=== PATIENT | female | born 1975 | race Caucasian/White ===

== ENCOUNTER 2016-06-10 09:06 | Emergency (ER) | payer BC ==
[2016-06-10 09:25] VITALS: BP 116/77
[2016-06-10 09:44] LABS: Urine Bilirubin Negative (NEGATIVE); Urine Blood 250 /ul (NEGATIVE); Urine Ketone Negative (NEGATIVE); Urine Nitrite Negative (NEGATIVE); Urine Protein 15 mg/dL (NEGATIVE); Urine Specific Gravity <=1.005 SP.GR. (1.005-1.010); Urine Urobilinogen Normal (NORMAL)
[2016-06-10 09:50] LABS: Urine Appearance Slightly Cloudy; Urine Bacteria 1+; Urine Color Yellow
--- NOTE | 2016-06-10 10:24 | ERNOTE ---
ER Female HPI Date of Service: 06/10/16 Stated Complaint: BLADDER INFECTION Time Seen by Provider: 06/10/16 09:53 Source: patient, police Immunizations: IMMUNIZATION HX Immunizations Up to Date Yes History of Influenza Vaccine No Hx Pneumococcal Vaccination No Allergies/Adverse Reactions: Allergies latex Allergy (Verified 06/10/16 09:26) Hives Penicillins Allergy (Verified 06/10/16 09:26) Sulfa (Sulfonamide Antibiotics) Allergy (Verified 06/10/16 09:26) Hives sulfamethoxazole [From Bactrim] Allergy (Verified 06/10/16 09:26) Hives trimethoprim [From Bactrim] Allergy (Verified 06/10/16 09:26) Hives Home Medications: HOME MEDICATIONS Ciprofloxacin HCl [Cipro] 500 mg PO BID #20 tab 06/10/16 [Last Taken Unknown] Effexor Er 150 mg PO DAILY 06/10/16 [Last Taken Unknown] L.acidoph,Paracasei, B.lactis [Probiotic] 1 cap PO DAILY 06/10/16 [Last Taken Unknown] Nitrofurantoin 100 mg PO DAILY PRN 06/10/16 [Last Taken Unknown] Phenazopyridine HCl [Pyridium] 100 mg PO TID #6 tab 06/10/16 [Last Taken Unknown ] Potassium 99 mg PO DAILY 06/10/16 [Last Taken Unknown] SUMAtriptan SUCCINATE [Imitrex] 25 mg PO PRN PRN 06/10/16 [Last Taken Unknown] traZODone HCL [Trazodone HCl] 100 mg PO HS 06/10/16 [Last Taken Unknown] - History of Present Illness Narrative: Pt. comes in with c/o dysuria, frequency, and urgency for a week. Pt. started her PRN macrobid four days ago but denies any relief. Pt. has frequent UTIs due to urine retention. Pt. enies any SOB, CP, NVD, back pain, but does sate that she has mild suprapubic pain. Pt. denies any aggravating factors. Review of Systems - Review of Systems Constitutional: Present: no symptoms reported EYE: Present: no symptoms reported ENT: Present: no symptoms reported Respiratory: Present: no symptoms reported Cardiology: Present: no symptoms reported Gastrointestinal/Abdominal: Present: no symptoms reported. Absent: nausea, vomiting, diarrhea, abdominal pain Genitourinary: Present: frequency, pain - suprapubic, dysuria, hematuria Musculoskeletal: Present: no symptoms reported. Absent: back pain, joint pain Neurological: Present: no symptoms reported. Absent: headache, dizziness/light- headedness, numbness, tingling Endocrine: Present: no symptoms reported Hematologic/Lymphatic: Present: no symptoms reported All Other Systems: All systems neg except as marked - Patient's Past Medical History Patient History - Medical: Depression, UTI'S Patient History - Cardiac/Respiratory: No pertinent hx Patient History - Cancer: No Hx of Cancer Patient History - Surgical Procedures: Hysterectomy, T & A, Other Patient History - Other: None LMP (females 10-50): 2010 hysterectomy - Social History Living Situations: other Abuse History: No History of abuse Psych History: Hx of Depression Smoking Status: Former smoker Do you dip or chew tobacco: No Alcohol Use: rarely Drug Use: none - Immunizations Immunizations Up to Date: Yes Hx Pneumococcal Vaccination: No History of Influenza Vaccine: No Physical Exam - Physical Exam General Appearance: Present: wd/wn, alert, no apparent distress Eye Exam: Normal inspection: bilateral, PERRL: bilateral, EOMI: bilateral Ears, Nose, Throat: Present: normal ENT inspection, normal pharynx Neck: Present: normal inspection, nontender. Absent: lymphadenopathy (R), lymphadenopathy (L) Respiratory: Present: no respiratory distress, normal breath sounds, no accessory muscle use, chest nontender, lungs clear Cardiovascular/Chest: Present: regular rate, rhythm, no murmur, normal peripheral pulses Gastrointestinal/Abdominal: Present: normal bowel sounds, nontender, nondistended, soft, no organomegaly Back Exam: Present: normal inspection, normal range of motion, no CVA tenderness , no vertebral tenderness Extremity Exam: Present: normal inspection Neurological Exam: Present: alert, oriented, normal mood/affect, no motor/ sensory deficits Skin Exam: Present: normal color, warm/dry. Absent: pallor, skin rash ED Progress - Results and Orders Patient's Lab Results:: I have reviewed the patient's lab results. - Vital Signs Patient's Vital Signs:: I have reviewed the patient's vital signs. Vital Signs: Vital Signs 06/10/16 09:18 Temperature 36.6 C Respiratory 70 H Rate Blood Pressure 116/77 O2 Sat by Pulse 100 Oximetry - Progress/Reassessment Chief Complaint: Urinary Tract Problems Departure Clinical Impression: UTI (urinary tract infection) Qualifiers: Urinary tract infection type: acute cystitis Hematuria presence: with hematuria Qualified Code(s): N30.01 - Acute cystitis with hematuria - Departure Disposition: Home self-care Condition: Good Instructions: Urinary Tract Infection, Adult, [id number] Additional Instructions: Please follow up with primary provider in 2-3 days. Referrals: Brii Souza DO [Primary Care Provider] - Prescriptions: Ciprofloxacin HCl [Cipro] 500 mg PO BID #20 tab Phenazopyridine HCl [Pyridium] 100 mg PO TID #6 tab
== END 2016-06-10 10:42 | disposition home or self-care (01) ==
LOC: ER 09:06
DX: N30.01 Acute cystitis with hematuria (principal); Z87.891 Personal history of nicotine dependence; R33.9 Retention of urine, unspecified